=== PATIENT | male | born 1990 | race Caucasian/White ===

== ENCOUNTER 2017-01-09 23:17 | Emergency (ER) | payer OTHER ==
[~2017-01-09] VITALS: Ht 167.6 cm; Wt 65.9 kg
[2017-01-09] MEDS ORDERED: METF500T4 PO (23:29)
[2017-01-09 23:37] LABS: GLUCOSE,POINT OF CARE 274 MG/DL (70-110)
[2017-01-10] MEDS ORDERED: HYDROCODONE/ACETAMINOPHEN 5-325 MG TABLET PO ONE (00:45)
[2017-01-10 01:26] VITALS: BP 117/61
== END 2017-01-10 02:59 | disposition home or self-care (01) ==
LOC: EMS 23:19
DX: S33.5XXA Sprain of ligaments of lumbar spine, initial encounter (principal); S93.402A Sprain of unspecified ligament of left ankle, initial encounter; W01.0XXA Fall on same level from slipping, tripping and stumbling without subsequent striking against object, initial encounter; Y93.89 Activity, other specified; Y92.89 Other specified places as the place of occurrence of the external cause; Y99.8 Other external cause status
CPT/HCPCS: 29515; 72100; 82962; 99284

== ENCOUNTER 2017-08-14 19:28 | Emergency (ER) | payer OTHER ==
[~2017-08-14] VITALS: Ht 167.6 cm; Wt 63.6 kg
[~2017-08-14 19:28] MED LIST: METF500T4 PO
[2017-08-14 20:07] VITALS: BP 162/94
== END 2017-08-15 00:53 | disposition left against medical advice (07) ==
LOC: EMS 19:30
DX: S09.90XA Unspecified injury of head, initial encounter (principal); Y08.89XA Assault by other specified means, initial encounter; Y93.89 Activity, other specified; Y92.89 Other specified places as the place of occurrence of the external cause; Y99.8 Other external cause status; Z53.21 Procedure and treatment not carried out due to patient leaving prior to being seen by health care provider